=== PATIENT | male | born 1965 | race Caucasian/White ===

== ENCOUNTER 2022-05-29 11:15 | Outpatient (REF) | payer OTHER, SELFPAY ==
[2022-05-29 14:52] LABS: Basophils Absolute Auto 0.1 X10*3/uL (0.0-0.2); Basophils Percent Auto 0.5 % (0-2); Eosinophils Absolute Auto 0.3 X10*3/uL (0.0-0.4); Eosinophils Percent Auto 2.5 % (0-4); Hematocrit 44.9 % (42.0-52.0); Hemoglobin 15.9 g/dl (14.0-18.0); Imm Gran Abs Auto 0.05 X10*3/uL (0.00-0.03); Imm Gran Pct Auto 0.5 % (0.0-0.4); Lymphocytes Absolute Auto 2.1 X10*3/uL (1.2-4.9); Lymphocytes Percent Auto 19.7 % (20-40); MANUAL DIFF FLAG NO; Mean Corpuscular HGB Conc 35.4 g/dl (31.0-36.0); Mean Corpuscular Hemoglobin 32.9 pg (27.0-33.0); Mean Corpuscular Volume 92.8 fL (80.0-98.0); Monocytes Absolute Auto 0.6 X10*3/uL (0.1-1.2); Monocytes Percent Auto 5.9 % (2-11); Neutrophils Absolute Auto 7.5 x10*3/uL (2.0-8.3); Neutrophils Percent Auto 70.9 % (45-73); Platelet Count 301 X10*3/uL (160-400); Red Blood Count 4.84 X10*6/uL (4.60-5.80); Red Cell Distribution Width 11.9 % (11.0-16.0); White Blood Count 10.5 X10*3/uL (4.8-10.8)
[2022-05-29 15:27] LABS: Anion Gap 17 (12-20); Blood Urea Nitrogen 11 mg/dL (9-16); Calcium 9.3 mg/dL (8.4-10.2); Carbon Dioxide 28 mmol/L (22-29); Chloride 99 mmol/L (96-108); Estimated Glomerular Filt Rate > 60; Glucose Random 107 mg/dL (60-115); Potassium 4.6 mmol/L (3.3-5.1); Sodium 139 mmol/L (135-145)
== END 2022-05-29 11:16 | disposition home or self-care (01) ==
LOC: HO.WFDLDS 11:15
PROVIDERS: Visit Provider Nurse Practitioner Family
DX: K92.1 Melena (principal)
CPT/HCPCS: 36415; 80048; 85025

== ENCOUNTER 2025-01-21 17:27 | Inpatient (IN) | payer OTHER, SELFPAY ==
--- NOTE | ~2025-01-21 | XR_ITS ---
CLINICAL HISTORY: bone erosion 3 view right ankle Comparison: None Findings: No acute fractures or dislocations. Mild midfoot spurring. No ankle effusion. No radiopaque foreign body. IMPRESSION: 1. No acute findings. Mild DJD. No definite erosive changes. This document has been electronically signed by: Franck Guevara MD on 01/21/2025 21:48:26
[2025-01-21 17:31] VITALS: BP 144/61; PULSE 85; RESP 20; TEMP 37; O2SAT 98; BMI 22.8
--- NOTE | 2025-01-21 17:55 | ED_ITS ---
HPI - Wound/Laceration General Chief Complaint: Wound/Laceration Stated Complaint: bilat ft infection Time Seen by Provider: 01/21/25 18:11 Source: patient Mode of arrival: ambulatory Limitations: no limitations History of Present Illness ED Provider: HPI narrative: Patient no significant past medical history apparently twisted his right ankle about 2 weeks ago 4 days after that patient went to the river and soaked his feet in the cold water to get better next the patient noticed erythema and blistering of the skin went to the [facility] and started on doxycycline and cephalexin for cellulitis today patient comes here as it is not getting better and spread to the other food also and has a open wound of the right medial malleolus of the ankle and multiple areas of cellulitis? Insect bite patient is up-to-date on tetanus Related Data Home Medications ?Medication ?Instructions ?Recorded ?Confirmed lisinopril 5 mg tablet 5 mg PO DAILY 06/03/22 Previous Rx's ?Medication ?Instructions ?Recorded simethicone 125 mg chewable tablet 125 mg PO TID-QID PRN abdominal 06/03/22 (Gas Relief (simethicone)) distention #90 tabs Allergies Allergy/AdvReac Type Severity Reaction Status Date / Time penicillin V Allergy Unknown Patient Verified 01/21/25 17:37 can't remember was a child then Review of Systems 2 Review of Systems: Yes all other systems are reviewed and are negative [facility] Past Medical History Medical History (Updated 01/21/25 @ 22:24 by Stefano Juan MD) HTN (hypertension) Family History Family History Mother No problems noted. Social History Social History Household Members Other:: lives with Alcohol intake: current Alcohol intake frequency: holidays/special occasions only Patient Tobacco Use Status: Current everyday Tobacco user Tobacco use type: Cigarette Cigarette Packs Per Day: 1 Smoked in Last 30 Days: Yes Use of substances other than those prescribed or required for medical reasons: No Advance Directives: No Advance Directives Information Provided: Yes Nutrition Risks: No Nutritional Risk Current occupational status: employed Current occupation: [employer]- Physical Exam 2 Vital Signs: Vital Signs: Last Vital Signs Temp 98.4 F 01/21/25 22:33 Pulse 96 01/21/25 22:33 Resp 16 01/21/25 22:33 BP 160/95 H 01/21/25 22:33 Pulse Ox 98 01/21/25 22:33 O2 Del Method Room Air 01/21/25 22:33 BMI result Body Mass Index 22.8 Appearance: Alert. Oriented X3. No acute distress. Eyes: No pallor or icterus ENT: Pharynx normal. Oral Mucosa moist Neck: Normal inspection. Neck supple. CVS: Normal heart rate and rhythm. Pulses normal. Respiratory: No respiratory distress. Equal air entry bilateral, no wheezing/rales/rhonchi Abdomen: Soft and nontender. Bowel sounds are present, no mass palpable, no CVA tenderness Skin: Skin warm and dry. Skin color changes as described in the picture Extremities: No lower extremity edema. No calf tenderness Neuro: Oriented X 3. No motor deficit. No sensory deficit.No cerebellar signs , cranial nerves II-XII intact Skin: Other: Course Course Course Narrative: This is a rapid medical exam. Deferred additional HPI, ROS, PE to primary provider. 59 yo male with no known medical history presents to the ER with bilateral lower extremity wounds, swelling and redness. [place] the [place]11. developed symptoms following day. Went to [facility] and started on doxcycline/keflex but feels symptoms have continued and are getting worse. No fevers. Ordered labs, wound culture, antibiotics Consulted with Dr Juan. Anticipate admit Medications Administered Generic Name Dose Route Start Last Admin Trade Name Freq PRN Reason Stop Dose Admin Ceftriaxone Sodium 1 gm 01/21/25 23:00 01/21/25 22:42 Ceftriaxone Sodium 1 Gm Vial IVPUSH 1 gm Q24H LARRY Administration Enoxaparin Sodium 40 mg 01/21/25 23:00 01/21/25 22:42 Enoxaparin Sodium 40 Mg/0.4 Ml Syringe SUBCUT 40 mg Q24H LARRY Administration Sodium Chloride 3 ml 01/22/25 00:00 01/21/25 22:43 0.9 % Sodium Chloride Flush 3 Ml Syringe IVFLUSH 3 ml QSHIFT LARRY Administration Thiamine HCl 100 mg 01/21/25 22:25 01/21/25 22:41 Thiamine Hcl 100 Mg Tablet PO 100 mg DAILY LARRY Administration Discontinued Medications Generic Name Dose Route Start Last Admin Trade Name Ilene PRN Reason Stop Dose Admin Cefepime HCl 2 gm in 50 mls @ 100 mls/hr 01/21/25 17:44 01/21/25 18:44 Maxipime IV 01/21/25 18:13 Infused ONCE ONE Infusion Vancomycin HCl 1,000 mg/ 535 mls @ 267.5 mls/hr 01/21/25 19:00 01/21/25 21:18 Vancomycin HCl 750 mg/ Sodium IV 01/21/25 20:59 Infused Chloride ONCE ONE Infusion Sodium Chloride 1,000 mls @ 999 mls/hr 01/21/25 17:44 01/21/25 19:39 Ns IV 01/21/25 18:44 Infused .Q1H1M STA Infusion Ketorolac Tromethamine 30 mg 01/21/25 19:00 01/21/25 19:05 Ketorolac Tromethamine 30 Mg/Ml Vial IVPUSH 01/21/25 19:01 30 mg ONCE ONE Administration Morphine Sulfate 2 mg 01/21/25 17:44 01/21/25 18:19 Morphine Sulfate 2 Mg/Ml Cartridge IVPUSH 01/21/25 17:45 2 mg ONCE ONE Administration Protocol Medical Decision Making Medical Decision Making [facility] Narrative: Patient with infected wound bilateral lower feet started after patient is put his feet in the water likely from insect bite patient has had the sprain in the right ankle before but wounds with a blister on cellulitis came after patient's his feet in the water likely Pseudomonas infection/Gram-negative rods will start patient on cefepime and vancomycin Lab Data [facility] Lab Attestation statement: I reviewed the patient's lab results. 01/21/25 17:56 01/21/25 17:56 Labs: Lab Results 01/21/25 Range/Units 17:56 WBC 9.9 (4.8-10.8) X10*3/uL RBC 4.24 L (4.60-5.80) X10*6/uL Hgb 14.6 (14.0-18.0) g/dl Hct 41.2 L (42.0-52.0) % MCV 97.2 (80.0-98.0) fL MCH 34.4 H (27.0-33.0) pg MCHC 35.4 (31.0-36.0) g/dl RDW 11.9 (11.0-16.0) % Plt Count 324 (160-400) X10*3/uL MPV 8.6 L (9.4-12.4) fL Immature Gran % (Auto) 0.5 H (0.0-0.4) % Neut % (Auto) 72.7 (45-73) % Lymph % (Auto) 17.1 L (20-40) % [place] % (Auto) 6.5 (2-11) % Eos % (Auto) 2.7 (0-4) % Baso % (Auto) 0.5 (0-2) % Lymph # (Auto) 1.7 (1.2-4.9) X10*3/uL [place] # (Auto) 0.6 (0.1-1.2) X10*3/uL Eos # (Auto) 0.3 (0.0-0.4) X10*3/uL Baso # (Auto) 0.1 (0.0-0.2) X10*3/uL Abs Immat Gran (auto) 0.05 H (0.00-0.03) X10*3/uL Absolute Neuts (auto) 7.2 (2.0-8.3) x10*3/uL Absolute Nucleated RBC 0.000 (0.0-0.012) X10*3/uL Nucleated RBC % (auto) 0.0 (0.0-0.2) /100WBC ESR 32 H (0-15) MM/HR Sodium 141 (135-145) mmol/L Potassium 3.9 (3.3-5.1) mmol/L Chloride 104 (96-108) mmol/L Carbon Dioxide 25 (22-29) mmol/L Anion Gap 16 (12-20) BUN 9 (9-16) mg/dL Creatinine 0.61 (0.5-1.4) mg/dL Estim Creat Clear Calc 130.8 Estimated GFR > 60 Random Glucose 93 (60-115) mg/dL Lactic Acid 1.4 (0.5-2.0) mmol/L Calcium 9.5 (8.4-10.2) mg/dL Total Bilirubin 0.2 (0.0-1.0) mg/dL Direct Bilirubin < 0.2 (0.0-0.5) mg/dL AST 23 (5-37) U/L ALT 13 (0-40) U/L Alkaline Phosphatase 139 H (39-117) U/L C-Reactive Protein 4.66 H (< or = 0.50) mg/dL Total Protein 7.3 (6.5-8.0) g/dL Albumin 4.0 (3.5-5.0) g/dL Discharge Plan Discharge Clinical Impression: Wound of foot Patient Disposition: Admitted As Inpatient
[2025-01-21 17:59] VITALS: BP 179/109; PULSE 73; RESP 16; TEMP 37; O2SAT 100
[2025-01-21 18:06] LABS: MANUAL DIFF FLAG NO
[2025-01-21] MEDS: 0.9 % Sodium Chloride 1,000 ML 999 ML IV (18:17)
[2025-01-21] MEDS: cefEPime HCl/D5W 2 GM/50 ML PIGGYBACK IV (18:17)
[2025-01-21] MEDS: Morphine Sulfate 2 MG/ML CARTRIDGE IVPUSH (18:19)
[2025-01-21 18:21] LABS: Basophils Absolute Auto 0.1 X10*3/uL (0.0-0.2); Basophils Percent Auto 0.5 % (0-2); Eosinophils Absolute Auto 0.3 X10*3/uL (0.0-0.4); Eosinophils Percent Auto 2.7 % (0-4); Hematocrit 41.2 % (42.0-52.0); Hemoglobin 14.6 g/dl (14.0-18.0); Imm Gran Abs Auto 0.05 X10*3/uL (0.00-0.03); Imm Gran Pct Auto 0.5 % (0.0-0.4); Lymphocytes Absolute Auto 1.7 X10*3/uL (1.2-4.9); Lymphocytes Percent Auto 17.1 % (20-40); Mean Corpuscular HGB Conc 35.4 g/dl (31.0-36.0); Mean Corpuscular Hemoglobin 34.4 pg (27.0-33.0); Mean Corpuscular Volume 97.2 fL (80.0-98.0); Mean Platelet Volume 8.6 fL (9.4-12.4); Monocytes Absolute Auto 0.6 X10*3/uL (0.1-1.2); Monocytes Percent Auto 6.5 % (2-11); Neutrophils Absolute Auto 7.2 x10*3/uL (2.0-8.3); Neutrophils Percent Auto 72.7 % (45-73); Platelet Count 324 X10*3/uL (160-400); Red Blood Count 4.24 X10*6/uL (4.60-5.80); Red Cell Distribution Width 11.9 % (11.0-16.0); White Blood Count 9.9 X10*3/uL (4.8-10.8)
[2025-01-21 18:28] LABS: Lactic Acid 1.4 mmol/L (0.5-2.0)
[2025-01-21 18:29] LABS: Alanine Aminotransferase 13 U/L (0-40); Alkaline Phosphatase 139 U/L (39-117); Anion Gap 16 (12-20); Aspartate Amino Transferase 23 U/L (5-37); Bilirubin Direct < 0.2 mg/dL (0.0-0.5); Bilirubin Total 0.2 mg/dL (0.0-1.0); Blood Urea Nitrogen 9 mg/dL (9-16); C Reactive Protein 4.66 mg/dL (< or = 0.50); Calcium 9.5 mg/dL (8.4-10.2); Carbon Dioxide 25 mmol/L (22-29); Chloride 104 mmol/L (96-108); Creatinine Clr Calc Pharmacy 130.8; Estimated Glomerular Filt Rate > 60; Glucose Random 93 mg/dL (60-115); Potassium 3.9 mmol/L (3.3-5.1); Sodium 141 mmol/L (135-145); Total Protein 7.3 g/dL (6.5-8.0)
[2025-01-21] MEDS: vancomycin HCL 1,000 MG, vancomycin HCL 750 MG in 0.9 % Sodium Chloride 500 ML 267.5 MG IV (18:48)
[2025-01-21] MEDS: Ketorolac Tromethamine 30 MG/ML VIAL IVPUSH (19:05)
[2025-01-21 19:49] LABS: Erythrocyte Sedimentation Rate 32 MM/HR (0-15)
--- NOTE | 2025-01-21 22:08 | PM.IMHP ---
History of Present Illness Date of Service: 01/21/25 Attending physician on admission: Figueroa Santana Chief Complaint: foot wounds Patient is a 51-year-old male with a past medical history significant for hypertension, who presented to the ED due to wounds on bilateral feet. The patient reports that he rolled his ankle 2 weeks ago and 4 days later he was soaking his feet in the [place] river and noticed the following day he had erythematous burning skin lesions on bilateral feet. He was seen at [facility] and sent home with doxycycline and Keflex. The lesions have traveled to the other foot. There is an open wound on the right medial malleolus as well as the right lateral malleolus. The patient reports that these were large blisters that drained thin clear liquid with some bright red blood. He denies any fever, chills, nausea or vomiting no upper respiratory symptoms, urinary symptoms or abdominal complaints. Denies a history of MRSA. He does drink a few beers daily but reports that he has not had any since taking his antibiotics. Review of Systems Constitutional: Constitutional: Denies body ache(s), Denies chills, Denies fatigue, Denies fever(s) and Denies headache(s) Eyes: Eyes: Denies change in vision and Denies photophobia ENT: Denies headache(s), Denies nasal congestion, Denies nasal discharge and Denies sore throat Cardiovascular: Cardiovascular: Denies chest pain, Denies rapid heart rate, Denies lightheadedness and Denies dyspnea Respiratory: Respiratory: Denies chest congestion, Denies cough, Denies dyspnea and Denies wheezing Gastrointestinal: Gastrointestinal: Denies abdominal pain, Denies diarrhea, Denies nausea and Denies vomiting Genitourinary: Genitourinary: Denies dysuria, Denies urinary frequency and Denies urinary urgency Musculoskeletal: Musculoskeletal: Denies back pain Integumentary/Breasts: Skin/Breast: Reports as per HPI Neurologic: Denies confusion and Denies headache(s) Psychiatric: Psychiatric: Denies confusion Endocrine: Endocrine: Denies fatigue Hematologic/Lymphatic: Hematologic/Lymphatic: Denies easy bleeding and Denies easy bruising Allergic/Immunologic: Allergic/Immunologic: Denies wheezing [facility] Medical History (Updated 01/21/25 @ 22:24 by Stefano Juan MD) HTN (hypertension) Functional capacity: independent ambulation Family History Mother No problems noted. Social History Household Members Other:: lives with Alcohol intake: current Alcohol intake frequency: holidays/special occasions only Patient Tobacco Use Status: Current everyday Tobacco user Tobacco use type: Cigarette Cigarette Packs Per Day: 1 Smoked in Last 30 Days: Yes Use of substances other than those prescribed or required for medical reasons: No Advance Directives: No Advance Directives Information Provided: Yes Current occupational status: employed Current occupation: [employer]- Narrative: Smokes 1 pack per day, drinks a few beers per day, no drug use Meds Allergies Allergy/AdvReac Type Severity Reaction Status Date / Time penicillin V Allergy Unknown Patient Verified 01/21/25 17:37 can't remember was a child then Active Medications: Current Medications Ceftriaxone Sodium (Ceftriaxone Sodium 1 Gm Vial) 1 gm IVPUSH Q24H [facility] Pharmacy Consult (Consult Rx Vancomycin Dosing) 1 each MISCELLANE DAILY PRN PRN Reason: Consult order Home Medications ?Medication ?Instructions ?Recorded ?Confirmed ?Last Taken ?Type lisinopril 5 mg tablet 5 mg PO DAILY 06/03/22 Unknown History Physical Exam Vital Signs and Narrative: Vital Signs: Last Vital Signs Temp 98.6 F 01/21/25 17:59 Pulse 73 01/21/25 17:59 Resp 16 01/21/25 17:59 BP 179/109 H 01/21/25 17:59 Pulse Ox 100 01/21/25 17:59 O2 Del Method Room Air 01/21/25 17:59 BMI result Body Mass Index 22.8 General: AOx3, no acute distress Resp: CTA bilaterally CVS: S1, S2, RRR GI: +BS, NT, no distention Skin: Warm, dry. erthematous skin lesions on bilateral feet. edematous bilateral ankles, non-pitting. no increased warmth or active drainage from lesions. Neuro: Cranial nerves II-XII grossly intact bilaterally. Motor grossly intact bilaterally Extremities: No edema Psych: Appropriate affect Const: General: No confusion Orientation/consciousness: No confusion Eyes: Direct Ophthalmoscopy: No photophobia Neuro: General: No confusion Results Labs 01/21/25 17:56 01/21/25 17:56 Labs: Laboratory Results - last 24 hr 01/21/25 17:56 MCV 97.2 MCH 34.4 H MCHC 35.4 RDW 11.9 Plt Count 324 MPV 8.6 L Immature Gran % (Auto) 0.5 H Neut % (Auto) 72.7 Lymph % (Auto) 17.1 L [place] % (Auto) 6.5 Eos % (Auto) 2.7 Baso % (Auto) 0.5 Lymph # (Auto) 1.7 [place] # (Auto) 0.6 Eos # (Auto) 0.3 Baso # (Auto) 0.1 Abs Immat Gran (auto) 0.05 H Absolute Neuts (auto) 7.2 Absolute Nucleated RBC 0.000 Nucleated RBC % (auto) 0.0 ESR 32 H Anion Gap 16 Estim Creat Clear Calc 130.8 Estimated GFR > 60 Random Glucose 93 Lactic Acid 1.4 Calcium 9.5 Total Bilirubin 0.2 Direct Bilirubin < 0.2 AST 23 ALT 13 Alkaline Phosphatase 139 H C-Reactive Protein 4.66 H Total Protein 7.3 Albumin 4.0 Assessment and Plan (1) Cellulitis: Status: Acute (2) Wound of foot: Status: Acute (3) Tobacco abuse disorder: Status: Acute (4) Alcohol use disorder: Status: Acute Plan Patient is a 51-year-old male with a past medical history significant for hypertension, who presented to the ED due to wounds on bilateral feet. Cellulitis bilateral feet, right foot wound - WBC normal, vitals stable, lactic acid normal, no sepsis - ESR 32, CRP 4.66 - x-ray right foot negative for acute findings - started on vancomycin and cefepime in ED, switch to doxycycline and ceftriaxone - ID consult - monitor CBC and BMP Alcohol use disorder - monitor CIWA - if CIWA scores elevated initiate phenobarb protocol Tobacco use disorder - smoking cessation encouraged - nicotine patch Hypertension - continue home meds Med reconciliation not complete upon admission Full code VTE prophylaxis: Lovenox Patient with cellulitis bilateral feet with right foot foot wound and failed outpatient treatment, requiring admission for at least 2 midnight stay for IV antibiotics and Infectious Disease consultation. Quality Stroke Does the patient have a stroke diagnosis?: No VTE Prior VTE?: No VTE Risk Level:: Medical - moderate - high VTE Device Contraindication: Treatment Not Indicated VTE Drug Contraindication: N/A - Med Ordered
[2025-01-21 22:33] VITALS: BP 160/95; PULSE 96; RESP 16; TEMP 36.9; O2SAT 98
[2025-01-21] MEDS: Thiamine HCL 100 MG TABLET PO (22:41)
[2025-01-21] MEDS: Enoxaparin Sodium 40 MG/0.4 ML SYRINGE SUBCUT (22:42)
[2025-01-21] MEDS: cefTRIAXone sodium 1 GM VIAL IVPUSH (22:42)
[2025-01-21] MEDS: 0.9 % Sodium Chloride Flush 3 ML SYRINGE IVFLUSH (22:43)
[2025-01-22] MEDS: Morphine Sulfate 4 MG/ML CARTRIDGE 2 MG IVPUSH ×2 (02:10→06:44)
[2025-01-22 04:56] LABS: MANUAL DIFF FLAG NO
[2025-01-22 04:59] LABS: Basophils Percent Auto 0.5 % (0-2); Eosinophils Absolute Auto 0.3 X10*3/uL (0.0-0.4); Eosinophils Percent Auto 3.4 % (0-4); Hematocrit 36.1 % (42.0-52.0); Hemoglobin 12.4 g/dl (14.0-18.0); Imm Gran Abs Auto 0.05 X10*3/uL (0.00-0.03); Imm Gran Pct Auto 0.6 % (0.0-0.4); Lymphocytes Absolute Auto 1.6 X10*3/uL (1.2-4.9); Lymphocytes Percent Auto 21.2 % (20-40); Mean Corpuscular HGB Conc 34.3 g/dl (31.0-36.0); Mean Corpuscular Hemoglobin 34.1 pg (27.0-33.0); Mean Corpuscular Volume 99.2 fL (80.0-98.0); Mean Platelet Volume 8.8 fL (9.4-12.4); Monocytes Absolute Auto 0.8 X10*3/uL (0.1-1.2); Monocytes Percent Auto 10.3 % (2-11); Neutrophils Absolute Auto 4.9 x10*3/uL (2.0-8.3); Platelet Count 277 X10*3/uL (160-400); Red Blood Count 3.64 X10*6/uL (4.60-5.80); Red Cell Distribution Width 11.7 % (11.0-16.0); White Blood Count 7.7 X10*3/uL (4.8-10.8)
[2025-01-22 05:13] LABS: Anion Gap 13 (12-20); Blood Urea Nitrogen 11 mg/dL (9-16); C Reactive Protein 3.78 mg/dL (< or = 0.50); Calcium 8.6 mg/dL (8.4-10.2); Carbon Dioxide 24 mmol/L (22-29); Chloride 107 mmol/L (96-108); Estimated Glomerular Filt Rate > 60; Glucose Random 96 mg/dL (60-115); Potassium 3.9 mmol/L (3.3-5.1); Sodium 140 mmol/L (135-145)
[2025-01-22 05:42] LABS: Erythrocyte Sedimentation Rate 20 MM/HR (0-15)
[2025-01-22 06:15] VITALS: BP 148/101; PULSE 79; RESP 18; TEMP 36; O2SAT 97
[2025-01-22] MEDS: vancomycin HCL 1,250 MG in 0.9 % Sodium Chloride 250 ML 166.67 MG IV (06:41)
--- NOTE | 2025-01-22 07:49 | PC.NURSE ---
Patient is a 51-year-old male with a past medical history significant for hypertension, who presented to the ED due to wounds on bilateral feet. The patient reports that he rolled his ankle 2 weeks ago and 4 days later he was [place] his feet [place] the [place] and noticed the following day he had erythematous burning skin lesions on bilateral feet. He was seen at [facility] and sent home with doxycycline and Keflex. The lesions have traveled to the other foot. There is an open wound on the right medial malleolus as well as the right lateral malleolus. Patient alert and oriented. conveyor monitor maintained and NSR noted. Lungs clear bilat. Respirations even and non-labored. Abdomen soft, distended with positive bowel sounds. Positive pedal pulses with trace edema. Bilat redness noted with several wounds. Refer to pictures.
[2025-01-22 08:54] VITALS: BP 155/87; PULSE 82; RESP 16; TEMP 36.8; O2SAT 99
[2025-01-22 09:00] VITALS: BMI 22.9
[2025-01-22] MEDS: Doxycycline Hyclate 100 MG in 0.9 % Sodium Chloride 250 ML 166.67 MG IV ×2 (09:04→21:41)
[2025-01-22] MEDS: Thiamine HCL 100 MG TABLET PO (09:12)
[2025-01-22] MEDS: Nicotine 21 MG PATCH.TD24 TRANSDERMA (09:12)
--- NOTE | 2025-01-22 11:57 | PHA.MEDREC ---
Addendum entered by Charmaine Reddy RPh 01/22/25 12:30: MED REC REVIEWED BY [facility] Original Note: Pharmacy Consult ? Medication Reconciliation Pharmacy has completed the medication reconciliation. Spoke with pt and he confirmed he is not taking any medications at this time. Pt was taking a Doxycycline and Cephalexin regimen that he stated he finished Friday 01/19.
[2025-01-22 12:04] VITALS: BP 169/86; PULSE 83; RESP 18; TEMP 36.9; O2SAT 100
--- NOTE | 2025-01-22 14:15 | MHC.CM.PN ---
CM met with Patient at bedside. Patient lives in a house with his /HCP/Julieta, who will transport to home at time of dc. Julieta worked as a Nurse and per Patient, can do his wound care at home. Patient has not seen a PCP in a few years and would not qualify for VNA. Patient works at [employer] in [place], and he has [employer] for insurance.
[2025-01-22] MEDS: 0.9 % Sodium Chloride Flush 3 ML SYRINGE IVFLUSH ×2 (15:39→23:16)
[2025-01-22 16:00] VITALS: BP 128/81; PULSE 87; RESP 18; TEMP 36.6; O2SAT 97
--- NOTE | 2025-01-22 17:21 | P.PNIM_ITS ---
Subjective Subjective Date of Service: 01/22/25 Interval History: foot cellulitis Review of Systems Feet area looks the same Pain improving Review of Systems: Yes all other systems are reviewed and are negative Physical Exam 2 Vital Signs: Vital Signs: Last Vital Signs Temp 97.8 F 01/22/25 16:00 Pulse 87 01/22/25 16:00 Resp 18 01/22/25 16:00 BP 128/81 01/22/25 16:00 Pulse Ox 97 01/22/25 16:00 O2 Del Method Room Air 01/22/25 16:00 BMI result Body Mass Index 22.9 Appearance: Alert.? Oriented X3.? . cvs: rrr, [id number] . res: clear to auscultation ,no rhonchii or wheezing abd: no rebound or guarding ,nt, bs present. ext pulses present , no cyanosis . skin: Foot area looks the same please see H and P note. neuro: axo3 , nonfocal. Objective Data Active Medications Acetaminophen (Acetaminophen 325 Mg Tablet) 975 mg PO Q6H PRN PRN Reason: Pain, Mild 1-3,fever,headache Calcium Carbonate (Calcium Carbonate 750 Mg Tab.Chew) 750 mg PO Q4H PRN PRN Reason: Heartburn Ceftriaxone Sodium (Ceftriaxone Sodium 1 Gm Vial) 1 gm IVPUSH Q24H [facility] Last Admin: 01/21/25 22:42 Dose: 1 gm Documented By: JENNIFER Enoxaparin Sodium (Enoxaparin Sodium 40 Mg/0.4 Ml Syringe) 40 mg SUBCUT Q24H [facility] Last Admin: 01/21/25 22:42 Dose: 40 mg Documented By: JENNIFER Doxycycline Hyclate 100 mg/ (Sodium Chloride) 250 mls @ 166.67 mls/hr IV BID [facility] Last Infusion: 01/22/25 10:42 Dose: Infused Documented By: FOGARTB Magnesium Hydroxide (Milk Of Magnesia 30 Ml Oral.Susp) 30 ml PO DAILY PRN PRN Reason: Constipation Melatonin (Melatonin 3 Mg Tablet) 6 mg PO BEDTIME PRN PRN Reason: Insomnia Morphine Sulfate (Morphine Sulfate 4 Mg/Ml Cartridge) 2 mg IVPUSH Q4H PRN; Protocol PRN Reason: Pain, Severe (Pain Scale 7-10) Last Admin: 01/22/25 06:44 Dose: 2 mg Documented By: ALLEN Nicotine (Nicotine 21 Mg Patch.Td24) 21 mg TRANSDERMA DAILY [facility] Last Admin: 01/22/25 09:12 Dose: 21 mg Documented By: SUJATHA Ondansetron HCl (Ondansetron Hcl 4 Mg/2 Ml Vial) 4 mg IVPUSH Q8H PRN PRN Reason: Nausea and Vomiting Oxycodone HCl (Oxycodone Hcl Immed Release 5 Mg Tablet) 5 mg PO Q6H PRN PRN Reason: Pain, Moderate(Pain Scale 4-6) Sodium Chloride (0.9 % Sodium Chloride Flush 3 Ml Syringe) 3 ml IVFLUSH QSHIFT [facility] Last Admin: 01/22/25 15:39 Dose: 3 ml Documented By: KAUSHALARTJarad Thiamine HCl (Thiamine Hcl 100 Mg Tablet) 100 mg PO DAILY [facility] Last Admin: 01/22/25 09:12 Dose: 100 mg Documented By: SUJATHA Labs 01/22/25 04:21 01/22/25 04:21 Labs: Laboratory Results - last 24 hr 01/21/25 01/22/25 17:56 04:21 MCV 97.2 99.2 H MCH 34.4 H 34.1 H MCHC 35.4 34.3 RDW 11.9 11.7 Plt Count 324 277 MPV 8.6 L 8.8 L Immature Gran % (Auto) 0.5 H 0.6 H Neut % (Auto) 72.7 64.0 Lymph % (Auto) 17.1 L 21.2 [place] % (Auto) 6.5 10.3 Eos % (Auto) 2.7 3.4 Baso % (Auto) 0.5 0.5 Lymph # (Auto) 1.7 1.6 [place] # (Auto) 0.6 0.8 Eos # (Auto) 0.3 0.3 Baso # (Auto) 0.1 0.0 Abs Immat Gran (auto) 0.05 H 0.05 H Absolute Neuts (auto) 7.2 4.9 Absolute Nucleated RBC 0.000 0.000 Nucleated RBC % (auto) 0.0 0.0 ESR 32 H 20 H Anion Gap 16 13 Estim Creat Clear Calc 130.8 133.0 Estimated GFR > 60 > 60 Random Glucose 93 96 Lactic Acid 1.4 Calcium 9.5 8.6 D Total Bilirubin 0.2 Direct Bilirubin < 0.2 AST 23 ALT 13 Alkaline Phosphatase 139 H C-Reactive Protein 4.66 H 3.78 H Total Protein 7.3 Albumin 4.0 Microbiology Microbiology Results: Microbiology 01/21/25 17:56 Gram Stain - Final Ankle Right Routine Culture - Preliminary Culture in progress. Assessment and Plan (1) Cellulitis: Status: Acute Plan 51-year-old male with a past medical history significant for hypertension, who presented to the ED due to wounds on bilateral feet. Cellulitis bilateral feet, right foot wound WBC normal, vitals stable, lactic acid normal, no sepsis ESR 32, CRP 4.66 x-ray right foot negative for acute findings started on vancomycin and cefepime in ED, switch to doxycycline and ceftriaxone ID consult monitor CBC and BMP Alcohol use disorder- monitor CIWA if CIWA scores elevated initiate phenobarb protocol Tobacco use disorder smoking cessation encouraged nicotine patch Hypertension- continue home meds Med reconciliation not complete upon admission Full code VTE prophylaxis: Lovenox Patient with cellulitis bilateral feet with right foot foot wound and failed outpatient treatment, requiring admission for at least 2 midnight stay for IV antibiotics and Infectious Disease Quality Stroke Does the patient have a stroke diagnosis?: No VTE Prior VTE?: No VTE Risk Level:: Medical - moderate - high VTE Device Contraindication: Treatment Not Indicated VTE Drug Contraindication: N/A - Med Ordered
[2025-01-22 19:42] VITALS: BP 159/96; PULSE 92; RESP 16; TEMP 36.7; O2SAT 97
[2025-01-22] MEDS: oxyCODONE HCl Immed Release 5 MG TABLET PO (21:43)
[2025-01-22 23:15] VITALS: BP 148/84; PULSE 84; RESP 16; TEMP 36.8; O2SAT 98
[2025-01-22] MEDS: cefTRIAXone sodium 1 GM VIAL IVPUSH (23:15)
[2025-01-22] MEDS: Enoxaparin Sodium 40 MG/0.4 ML SYRINGE SUBCUT (23:15)
[2025-01-23 03:55] VITALS: BP 140/87; PULSE 81; RESP 17; TEMP 36.2; O2SAT 97
[2025-01-23 07:11] LABS: MANUAL DIFF FLAG NO
[2025-01-23 07:12] VITALS: BP 154/90; PULSE 73; RESP 20; TEMP 36.2; O2SAT 97
[2025-01-23 07:17] LABS: Basophils Absolute Auto 0.1 X10*3/uL (0.0-0.2); Basophils Percent Auto 0.7 % (0-2); Eosinophils Absolute Auto 0.3 X10*3/uL (0.0-0.4); Eosinophils Percent Auto 4.4 % (0-4); Hematocrit 36.8 % (42.0-52.0); Hemoglobin 12.7 g/dl (14.0-18.0); Imm Gran Abs Auto 0.05 X10*3/uL (0.00-0.03); Imm Gran Pct Auto 0.7 % (0.0-0.4); Lymphocytes Absolute Auto 1.7 X10*3/uL (1.2-4.9); Lymphocytes Percent Auto 23.4 % (20-40); Mean Corpuscular HGB Conc 34.5 g/dl (31.0-36.0); Mean Corpuscular Volume 98.4 fL (80.0-98.0); Mean Platelet Volume 8.6 fL (9.4-12.4); Monocytes Absolute Auto 0.6 X10*3/uL (0.1-1.2); Monocytes Percent Auto 8.3 % (2-11); Neutrophils Absolute Auto 4.6 x10*3/uL (2.0-8.3); Neutrophils Percent Auto 62.5 % (45-73); Platelet Count 280 X10*3/uL (160-400); Red Blood Count 3.74 X10*6/uL (4.60-5.80); Red Cell Distribution Width 11.4 % (11.0-16.0); White Blood Count 7.4 X10*3/uL (4.8-10.8)
[2025-01-23 07:18] LABS: Hematocrit 36.2 % (42.0-52.0); Hemoglobin 12.6 g/dl (14.0-18.0); Mean Corpuscular HGB Conc 34.8 g/dl (31.0-36.0); Mean Corpuscular Hemoglobin 33.8 pg (27.0-33.0); Mean Corpuscular Volume 97.1 fL (80.0-98.0); Mean Platelet Volume 8.4 fL (9.4-12.4); Platelet Count 272 X10*3/uL (160-400); Red Blood Count 3.73 X10*6/uL (4.60-5.80); Red Cell Distribution Width 11.7 % (11.0-16.0); White Blood Count 7.6 X10*3/uL (4.8-10.8)
[2025-01-23 07:33] LABS: Anion Gap 12 (12-20); Blood Urea Nitrogen 9 mg/dL (9-16); Calcium 8.8 mg/dL (8.4-10.2); Carbon Dioxide 25 mmol/L (22-29); Chloride 105 mmol/L (96-108); Creatinine Clr Calc Pharmacy 131.2; Estimated Glomerular Filt Rate > 60; Glucose Random 98 mg/dL (60-115); Potassium 4.1 mmol/L (3.3-5.1); Sodium 138 mmol/L (135-145)
[2025-01-23 07:35] LABS: Anion Gap 12 (12-20); Blood Urea Nitrogen 9 mg/dL (9-16); Calcium 8.8 mg/dL (8.4-10.2); Carbon Dioxide 25 mmol/L (22-29); Chloride 105 mmol/L (96-108); Creatinine Clr Calc Pharmacy 133.4; Estimated Glomerular Filt Rate > 60; Glucose Random 97 mg/dL (60-115); Sodium 138 mmol/L (135-145)
[2025-01-23] MEDS: oxyCODONE HCl Immed Release 5 MG TABLET PO ×2 (08:19→14:38)
[2025-01-23] MEDS: Thiamine HCL 100 MG TABLET PO (08:19)
[2025-01-23] MEDS: Nicotine 21 MG PATCH.TD24 TRANSDERMA (08:20)
[2025-01-23] MEDS: 0.9 % Sodium Chloride Flush 3 ML SYRINGE IVFLUSH (08:22)
[2025-01-23] MEDS: Doxycycline Hyclate 100 MG in 0.9 % Sodium Chloride 250 ML 166.67 MG IV (08:22)
--- NOTE | 2025-01-23 12:25 | PM.DS ---
DS: Providers Provider Date of Service: 01/23/25 Date of admission: 01/21/25 20:53 Date of discharge: 01/23/25 Primary care physician: None Physician Consults: 01/21/25 22:04 Consult to Infectious Diseases Routine Consulting Provider: [facility] Reason for consultation: foot wounds, cellulitis Has provider been notified: No 01/22/25 10:29 Consult to Wound Care Routine Reason for consultation: bilateral feet wounds DS: Diagnosis Discharge Diagnosis (1) Cellulitis: Status: Acute DS: Summary Hospital Course Hospital Course: Chief Complaint: foot wounds Patient is a 51-year-old male with a past medical history significant for hypertension, who presented to the ED due to wounds on bilateral feet. The patient reports that he rolled his ankle 2 weeks ago and 4 days later he was [place] and noticed the following day he had erythematous burning skin lesions on bilateral feet. He was seen at [facility] and sent home with doxycycline and Keflex. The lesions have traveled to the other foot. There is an open wound on the right medial malleolus as well as the right lateral malleolus. The patient reports that these were large blisters that drained thin clear liquid with some bright red blood. He denies any fever, chills, nausea or vomiting no upper respiratory symptoms, urinary symptoms or abdominal complaints. Denies a history of MRSA. He does drink a few beers daily but reports that he has not had any since taking his antibiotics. Hospital course: The patient presented with blisters on both feet (see provided pictures) after stepping into the [facility], admitted for presumed cellulitis of the feet. Superficial wound culture grew Staphylococcus aureus. The patient has significantly improved with treatment but still has some residual blisters. Management: Initially treated with intravenous doxycycline and ceftriaxone, resulting in significant clinical improvement. Superficial wound culture positive for Staphylococcus aureus, supporting the diagnosis of cellulitis and guiding antibiotic choice. Plan to transition to oral doxycycline and Ceftin (Cefuroxime) for discharge to complete the antibiotic course. Time Attestation Discharge Coordination Time (in mins): 45 Quality: Safe Use of Opioids Does Pt have an Active Cancer Diagnosis on the Problem List?: No Quality: Stroke Does the patient have a stroke diagnosis?: No Physical Exam Vital Signs: Vital Signs: Last Vital Signs Temp 97.1 F 01/23/25 07:12 Pulse 73 01/23/25 07:12 Resp 20 01/23/25 07:12 BP 154/90 H 01/23/25 07:12 Pulse Ox 97 01/23/25 07:12 O2 Del Method Room Air 01/23/25 07:12 BMI result Body Mass Index 22.9 Skin: Other: DS: Data Data Completed and Pending Labs on day of discharge: Laboratory Results - last 24 hr 01/23/25 01/23/25 01/23/25 07:00 07:00 07:00 WBC 7.4 7.6 RBC 3.74 L 3.73 L Hgb 12.7 L Hct MCV MCH MCHC RDW Plt Count MPV Immature Gran % (Auto) Neut % (Auto) Lymph % (Auto) [place] % (Auto) Eos % (Auto) Baso % (Auto) Lymph # (Auto) [place] # (Auto) Eos # (Auto) Baso # (Auto) Abs Immat Gran (auto) Absolute Neuts (auto) Absolute Nucleated RBC Nucleated RBC % (auto) Sodium Potassium Chloride Carbon Dioxide Anion Gap BUN Creatinine Estim Creat Clear Calc Estimated GFR Random Glucose Calcium 01/23/25 01/23/25 01/23/25 07:00 07:00 07:00 WBC RBC Hgb 12.6 L Hct 36.8 L 36.2 L MCV 98.4 H 97.1 MCH 34.0 H MCHC RDW Plt Count MPV Immature Gran % (Auto) Neut % (Auto) Lymph % (Auto) [place] % (Auto) Eos % (Auto) Baso % (Auto) Lymph # (Auto) [place] # (Auto) Eos # (Auto) Baso # (Auto) Abs Immat Gran (auto) Absolute Neuts (auto) Absolute Nucleated RBC Nucleated RBC % (auto) Sodium Potassium Chloride Carbon Dioxide Anion Gap BUN Creatinine Estim Creat Clear Calc Estimated GFR Random Glucose Calcium 01/23/25 01/23/25 01/23/25 07:00 07:00 07:00 WBC RBC Hgb Hct MCV MCH 33.8 H MCHC 34.5 34.8 RDW 11.4 11.7 Plt Count 280 MPV Immature Gran % (Auto) Neut % (Auto) Lymph % (Auto) [place] % (Auto) Eos % (Auto) Baso % (Auto) Lymph # (Auto) [place] # (Auto) Eos # (Auto) Baso # (Auto) Abs Immat Gran (auto) Absolute Neuts (auto) Absolute Nucleated RBC Nucleated RBC % (auto) Sodium Potassium Chloride Carbon Dioxide Anion Gap BUN Creatinine Estim Creat Clear Calc Estimated GFR Random Glucose Calcium 01/23/25 01/23/25 01/23/25 07:00 07:00 07:00 WBC RBC Hgb Hct MCV MCH MCHC RDW Plt Count 272 MPV 8.6 L 8.4 L Immature Gran % (Auto) 0.7 H Neut % (Auto) 62.5 Lymph % (Auto) 23.4 [place] % (Auto) 8.3 Eos % (Auto) 4.4 H Baso % (Auto) 0.7 Lymph # (Auto) 1.7 [place] # (Auto) 0.6 Eos # (Auto) 0.3 Baso # (Auto) 0.1 Abs Immat Gran (auto) 0.05 H Absolute Neuts (auto) 4.6 Absolute Nucleated RBC 0.000 0.000 Nucleated RBC % (auto) 0.0 Sodium Potassium Chloride Carbon Dioxide Anion Gap BUN Creatinine Estim Creat Clear Calc Estimated GFR Random Glucose Calcium 01/23/25 01/23/25 01/23/25 07:00 07:00 07:00 WBC RBC Hgb Hct MCV MCH MCHC RDW Plt Count MPV Immature Gran % (Auto) Neut % (Auto) Lymph % (Auto) [place] % (Auto) Eos % (Auto) Baso % (Auto) Lymph # (Auto) [place] # (Auto) Eos # (Auto) Baso # (Auto) Abs Immat Gran (auto) Absolute Neuts (auto) Absolute Nucleated RBC Nucleated RBC % (auto) 0.0 Sodium 138 138 Potassium 4.0 4.1 Chloride 105 Carbon Dioxide Anion Gap BUN Creatinine Estim Creat Clear Calc Estimated GFR Random Glucose Calcium 01/23/25 01/23/25 01/23/25 07:00 07:00 07:00 WBC RBC Hgb Hct MCV MCH MCHC RDW Plt Count MPV Immature Gran % (Auto) Neut % (Auto) Lymph % (Auto) [place] % (Auto) Eos % (Auto) Baso % (Auto) Lymph # (Auto) [place] # (Auto) Eos # (Auto) Baso # (Auto) Abs Immat Gran (auto) Absolute Neuts (auto) Absolute Nucleated RBC Nucleated RBC % (auto) Sodium Potassium Chloride 105 Carbon Dioxide 25 25 Anion Gap 12 12 BUN 9 Creatinine Estim Creat Clear Calc Estimated GFR Random Glucose Calcium 01/23/25 01/23/25 01/23/25 07:00 07:00 07:00 WBC RBC Hgb Hct MCV MCH MCHC RDW Plt Count MPV Immature Gran % (Auto) Neut % (Auto) Lymph % (Auto) [place] % (Auto) Eos % (Auto) Baso % (Auto) Lymph # (Auto) [place] # (Auto) Eos # (Auto) Baso # (Auto) Abs Immat Gran (auto) Absolute Neuts (auto) Absolute Nucleated RBC Nucleated RBC % (auto) Sodium Potassium Chloride Carbon Dioxide Anion Gap BUN 9 Creatinine 0.60 0.61 Estim Creat Clear Calc 133.4 131.2 Estimated GFR > 60 Random Glucose Calcium 01/23/25 01/23/25 01/23/25 07:00 07:00 07:00 WBC RBC Hgb Hct MCV MCH MCHC RDW Plt Count MPV Immature Gran % (Auto) Neut % (Auto) Lymph % (Auto) [place] % (Auto) Eos % (Auto) Baso % (Auto) Lymph # (Auto) [place] # (Auto) Eos # (Auto) Baso # (Auto) Abs Immat Gran (auto) Absolute Neuts (auto) Absolute Nucleated RBC Nucleated RBC % (auto) Sodium Potassium Chloride Carbon Dioxide Anion Gap BUN Creatinine Estim Creat Clear Calc Estimated GFR > 60 Random Glucose 97 98 Calcium 8.8 8.8 Preliminary micro results at discharge 01/21/25 17:56 Routine Culture - Preliminary Ankle Right Staphylococcus species 01/21/25 17:56 Blood Culture - Preliminary Blood - Venous No growth after 24 hours. 01/21/25 17:56 Blood Culture - Preliminary Blood - Venous No growth after 24 hours. Discharge Plan Discharge Anticipated Discharge Date/Time: 01/23/25 12:42 Patient Disposition: Home, Self-Care Discharge Diagnosis: Cellulitis of the feet Referrals: Physician,None [Primary Care Provider] - 1 Week Discharge Medications: New doxycycline monohydrate 100 mg capsule 100 mg PO BID 12 Days Qty: 24 0RF cefuroxime axetil 500 mg tablet 500 mg PO BID 14 Days Qty: 27 0RF No Action No Known Home Meds Discharge Orders: Discharge Order (Routine); Ordered 01/23/25 Ordered By: Teofilo Redh Diet: Advance to usual diet Activity on Discharge: As tolerated Stand Alone Forms: Patient Portal Discharge page Print Language: Indonesian Care Plan Goals: recovery from cellulitis of the feet Health Concerns: Cellulitis of the feet, alcohol use disorder Plan of Treatment: Take Doxycyline and Cefuroxime as recommended and follow up with your Doctor in a week Assessment: see above
--- NOTE | 2025-01-23 14:17 | P.CNID_ITS ---
History of Present Illness Data of Consult Service Date: 01/22/25 Requesting physician: Abdirashid Hinojosa Primary Care Provider: None Physician HPI Reason for consult: redness bilateral feet He reports wading in [place] week before and developed redness and blisters feet. He denied injury. He has no rash elsewhere. He in ER and given cephalosporin and Doxycycline and not improved. Review of Systems 2 Review of Systems: Yes all other systems are reviewed and are negative PMFSH Past Medical History Medical History HTN (hypertension) Family History Family History Mother No problems noted. Family history: reviewed and not pertinent Social History Social History Household Members: Spouse Household Members Other:: lives with Housing: House Do you presently have visiting nurse or other home services: No Alcohol intake: current Alcohol intake frequency: holidays/special occasions only Patient Tobacco Use Status: Current everyday Tobacco user Tobacco use type: Cigarette Cigarette Packs Per Day: 1 Cigarettes Per Day: 20.0 service: No Current occupational status: employed Current occupation: [employer]- Meds Allergies Allergy/AdvReac Type Severity Reaction Status Date / Time penicillin V Allergy Unknown Patient Verified 01/21/25 17:37 can't remember was a child then Active Medications: Current Medications Acetaminophen (Acetaminophen 325 Mg Tablet) 975 mg PO Q6H PRN PRN Reason: Pain, Mild 1-3,fever,headache Calcium Carbonate (Calcium Carbonate 750 Mg Tab.Chew) 750 mg PO Q4H PRN PRN Reason: Heartburn Ceftriaxone Sodium (Ceftriaxone Sodium 1 Gm Vial) 1 gm IVPUSH Q24H LARRY Last Admin: 01/22/25 23:15 Dose: 1 gm Enoxaparin Sodium (Enoxaparin Sodium 40 Mg/0.4 Ml Syringe) 40 mg SUBCUT Q24H LARRY Last Admin: 01/22/25 23:15 Dose: 40 mg Doxycycline Hyclate 100 mg/ (Sodium Chloride) 250 mls @ 166.67 mls/hr IV BID LARRY Last Infusion: 01/23/25 10:16 Dose: Infused Magnesium Hydroxide (Milk Of Magnesia 30 Ml Oral.Susp) 30 ml PO DAILY PRN PRN Reason: Constipation Melatonin (Melatonin 3 Mg Tablet) 6 mg PO BEDTIME PRN PRN Reason: Insomnia Morphine Sulfate (Morphine Sulfate 4 Mg/Ml Cartridge) 2 mg IVPUSH Q4H PRN; Protocol PRN Reason: Pain, Severe (Pain Scale 7-10) Last Admin: 01/22/25 06:44 Dose: 2 mg Nicotine (Nicotine 21 Mg Patch.Td24) 21 mg TRANSDERMA DAILY [facility] Last Admin: 01/23/25 08:20 Dose: 21 mg Ondansetron HCl (Ondansetron Hcl 4 Mg/2 Ml Vial) 4 mg IVPUSH Q8H PRN PRN Reason: Nausea and Vomiting Oxycodone HCl (Oxycodone Hcl Immed Release 5 Mg Tablet) 5 mg PO Q6H PRN PRN Reason: Pain, Moderate(Pain Scale 4-6) Last Admin: 01/23/25 08:19 Dose: 5 mg Sodium Chloride (0.9 % Sodium Chloride Flush 3 Ml Syringe) 3 ml IVFLUSH QSHIFT [facility] Last Admin: 01/23/25 08:22 Dose: 3 ml Thiamine HCl (Thiamine Hcl 100 Mg Tablet) 100 mg PO DAILY [facility] Last Admin: 01/23/25 08:19 Dose: 100 mg Home Medications ?Medication ?Instructions ?Recorded ?Confirmed ?Last Taken ?Type No Known Home Meds 01/22/25 01/22/25 Unknown History Physical Exam 2 Vital Signs: Vital Signs: Last Vital Signs Temp 97.1 F 01/23/25 07:12 Pulse 73 01/23/25 07:12 Resp 20 01/23/25 07:12 BP 154/90 H 01/23/25 07:12 Pulse Ox 97 01/23/25 07:12 O2 Del Method Room Air 01/23/25 07:12 BMI result Body Mass Index 22.9 Const: General: cooperative HEENT: Head: Yes normal to inspection Face and sinus: Yes normal facial exam Mouth: Normal oral and palatal mucosa present Teeth and gingiva: d entition normal Eyes: General: appearance normal, both eyes and all related structures P upils: Equal, round and reactive pupils present Resp: Effort & Inspection: normal respiratory effort Cardio: Rate: regular rate Rhythm: regular rhythm GI: Palpation (GI): Soft to palpation and nontender : General: Yes no CVA tenderness Back/Spine/Pelvis: Back: no CVA tenderness Skin: General skin exam: no rashes or lesions noted Neuro: General: moves all extremities Cranial nerves: Yes Equal, round and reactive pupils present Extrem: Other: bilateral feet blister and scaly red and blue areas Psych: Appearance: grossly normal Results Labs 01/23/25 07:00 01/23/25 07:00 Labs: Short CBC 01/23/25 01/23/25 01/23/25 Range/Units 07:00 07:00 07:00 WBC 7.4 7.6 (4.8-10.8) X10*3/uL Hgb 12.7 L 12.6 L (14.0-18.0) g/dl Hct 36.8 L (42.0-52.0) % Plt Count (160-400) X10*3/uL 01/23/25 01/23/25 Range/Units 07:00 07:00 WBC (4.8-10.8) X10*3/uL Hgb (14.0-18.0) g/dl Hct 36.2 L (42.0-52.0) % Plt Count 280 272 (160-400) X10*3/uL BMP 01/23/25 01/23/25 01/23/25 07:00 07:00 07:00 Sodium 138 138 Potassium 4.0 4.1 Chloride 105 Carbon Dioxide BUN Creatinine Calcium 01/23/25 01/23/25 01/23/25 07:00 07:00 07:00 Sodium Potassium Chloride 105 Carbon Dioxide 25 25 BUN 9 9 Creatinine 0.60 Calcium 01/23/25 01/23/25 07:00 07:00 Sodium Potassium Chloride Carbon Dioxide BUN Creatinine 0.61 Calcium 8.8 8.8 Microbiology Microbiology Results: Microbiology 01/21/25 17:56 Ankle Right Gram Stain - Final 01/21/25 17:56 Ankle Right Routine Culture - Preliminary Staphylococcus species 01/21/25 17:56 Blood - Venous Blood Culture - Preliminary No growth after 24 hours. 01/21/25 17:56 Blood - Venous Blood Culture - Preliminary No growth after 24 hours. Assessment and Plan (1) Wound of foot: Status: Acute (2) Cellulitis: Status: Acute Plan Would discharge now on po Doxycycline and Augmentin for 14 days.
[2025-01-23] MEDS: cefuroxime axetiL 500 MG TABLET PO (14:36)
[2025-01-23 14:50] VITALS: BP 139/93; PULSE 88; RESP 20; TEMP 36.3; O2SAT 97
--- NOTE | 2025-01-23 15:22 | MHC.CM.PN ---
Pt has been medically cleared for DC, he will go home via private transport, plan is self care.
== END 2025-01-23 15:23 | disposition home or self-care (01) | DRG 383 ==
LOC: HO.ED 18:58 → HO.EDOVER 21:07 → HO.IMC 01-22 08:26
PROVIDERS: Internal Medicine; Nurse Practitioner Family; Physician Assistant; Admitting Provider Student in an Organized Health Care Education/Training Program; Emergency Provider Internal Medicine; Visit Provider Internal Medicine
DX: L03.115 Cellulitis of right lower limb (principal); F10.90 Alcohol use, unspecified, uncomplicated; L03.116 Cellulitis of left lower limb; I10 Essential (primary) hypertension; F17.210 Nicotine dependence, cigarettes, uncomplicated; Z71.6 Tobacco abuse counseling
CPT/HCPCS: 36415; 73600; 80048; 80076; 83605; 85025; 85027; 85652; 86140; 87040; 87070; 87077; 87186; 87205; 99222; 99285; J0692; J0696; J1271; J1650; J1885; J2270; J3370; J3371

== ENCOUNTER → 2025-01-21 20:48 | Outpatient (BNV) | payer OTHER, SELFPAY | PROVIDERS: Admitting Provider Student in an Organized Health Care Education/Training Program; Emergency Provider Internal Medicine; Visit Provider Student in an Organized Health Care Education/Training Program | DX: M85.871 Other specified disorders of bone density and structure, right ankle and foot (principal) | CPT/HCPCS: 73600 ==

== ENCOUNTER → 2025-01-21 20:53 | Outpatient (BNV) | payer OTHER, SELFPAY | PROVIDERS: Admitting Provider Student in an Organized Health Care Education/Training Program; Emergency Provider Internal Medicine; Visit Provider Physician Assistant | DX: L03.90 Cellulitis, unspecified (principal); S91.309A Unspecified open wound, unspecified foot, initial encounter; Z72.0 Tobacco use; F10.90 Alcohol use, unspecified, uncomplicated | CPT/HCPCS: 99223 ==

== ENCOUNTER → 2025-01-21 20:53 | Outpatient (BNV) | payer OTHER, SELFPAY | PROVIDERS: Admitting Provider Student in an Organized Health Care Education/Training Program; Emergency Provider Internal Medicine; Visit Provider Internal Medicine | DX: S91.309A Unspecified open wound, unspecified foot, initial encounter (principal); L03.90 Cellulitis, unspecified | CPT/HCPCS: 99222 ==

== ENCOUNTER 2025-04-16 16:58 | Emergency (ER) | payer OTHER, SELFPAY ==
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
[2025-04-16 17:10] VITALS: BP 132/97; PULSE 79; RESP 18; TEMP 37.1; O2SAT 96; BMI 22.3
--- NOTE | 2025-04-16 17:12 | ED.GENADULT ---
HPI - General Adult General Chief complaint: Abdominal Pain Stated complaint: groin pain (?hernia) Related Data Home Medications ?Medication ?Instructions ?Recorded ?Confirmed No Known Home Meds 01/22/25 01/22/25 Previous Rx's ?Medication ?Instructions ?Recorded cefuroxime axetil 500 mg tablet 500 mg PO BID 14 days #27 tabs 01/23/25 doxycycline monohydrate 100 mg 100 mg PO BID 12 days #24 caps 01/23/25 capsule Allergies Allergy/AdvReac Type Severity Reaction Status Date / Time penicillin V Allergy Unknown Patient Verified 04/17/25 11:11 can't remember was a child then [facility] Past Medical History Medical History HTN (hypertension) Family History Family History Mother No problems noted. Social History Social History Household Members: Spouse Household Members Other:: lives with Housing: House Do you presently have visiting nurse or other home services: No Alcohol intake: current Alcohol intake frequency: holidays/special occasions only Patient Tobacco Use Status: Current everyday Tobacco user Tobacco use type: Cigarette Cigarette Packs Per Day: 1 Cigarettes Per Day: 20.0 Advance Directives: No Advance Directives Information Provided: No service: No Current occupational status: employed Current occupation: [employer]- Physical Exam ED Vital Signs: BMI result Body Mass Index 22.3 Course Course Course Narrative: Rapid medical examination performed in triage by Yessica Butler PA-C. Patient is a 59 year old assigned male at presenting to the emergency department with lower abdominal pain. Detailed physical exam and review of systems are deferred to the embedded firmware developer. Labs ordered. Patient placed back in the waiting room pending room availability and results. Patient left the department without completing treatment. Patient's limited physical exam performed in triage showed a non-toxic individual in no acute distress, ambulating well without assistance, alert and oriented. Medical Decision Making Lab Data 04/16/25 17:20 04/16/25 17:20 Labs: Lab Results 04/16/25 Range/Units 17:20 WBC 5.7 (4.8-10.8) X10*3/uL RBC 4.38 L (4.60-5.80) X10*6/uL Hgb 15.6 D (14.0-18.0) g/dl Hct 41.6 L (42.0-52.0) % MCV 95.0 (80.0-98.0) fL MCH 35.6 H (27.0-33.0) pg MCHC 37.5 H (31.0-36.0) g/dl RDW 13.7 (11.0-16.0) % Plt Count 200 D (160-400) X10*3/uL MPV 8.1 L (9.4-12.4) fL Immature Gran % (Auto) 0.3 (0.0-0.4) % Neut % (Auto) 53.3 (45-73) % Lymph % (Auto) 36.9 (20-40) % Pope % (Auto) 6.1 (2-11) % Eos % (Auto) 2.4 (0-4) % Baso % (Auto) 1.0 (0-2) % Lymph # (Auto) 2.1 (1.2-4.9) X10*3/uL Pope # (Auto) 0.4 (0.1-1.2) X10*3/uL Eos # (Auto) 0.1 (0.0-0.4) X10*3/uL Baso # (Auto) 0.1 (0.0-0.2) X10*3/uL Abs Immat Gran (auto) 0.02 (0.00-0.03) X10*3/uL Absolute Neuts (auto) 3.0 (2.0-8.3) x10*3/uL Absolute Nucleated RBC 0.000 (0.0-0.012) X10*3/uL Nucleated RBC % (auto) 0.0 (0.0-0.2) /100WBC Sodium 143 (135-145) mmol/L Potassium 4.1 (3.3-5.1) mmol/L Chloride 105 (96-108) mmol/L Carbon Dioxide 28 (22-29) mmol/L Anion Gap 14 (12-20) BUN 16 (9-16) mg/dL Creatinine 0.71 (0.5-1.4) mg/dL Estim Creat Clear Calc 113.2 Estimated GFR > 60 Random Glucose 99 (60-115) mg/dL Calcium 8.5 (8.4-10.2) mg/dL Total Bilirubin 0.2 (0.0-1.0) mg/dL AST 87 H (5-37) U/L ALT 59 H (0-40) U/L Alkaline Phosphatase 123 H (39-117) U/L Total Protein 7.2 (6.5-8.0) g/dL Albumin 4.2 (3.5-5.0) g/dL Discharge Plan Discharge Clinical Impression: Abdominal pain Patient Disposition: Left W/O Completing Treatment Prescriptions: No Action No Known Home Meds doxycycline monohydrate 100 mg capsule 100 mg PO BID 12 Days Qty: 24 0RF cefuroxime axetil 500 mg tablet 500 mg PO BID 14 Days Qty: 27 0RF Discharge Date/Time: 04/16/25 21:31
[2025-04-16 17:26] LABS: MANUAL DIFF FLAG NO
[2025-04-16 17:28] LABS: Hematocrit 41.6 % (42.0-52.0); Hemoglobin 15.6 g/dl (14.0-18.0); Imm Gran Abs Auto 0.02 X10*3/uL (0.00-0.03); Imm Gran Pct Auto 0.3 % (0.0-0.4); Lymphocytes Absolute Auto 2.1 X10*3/uL (1.2-4.9); Mean Corpuscular HGB Conc 37.5 g/dl (31.0-36.0); Mean Corpuscular Hemoglobin 35.6 pg (27.0-33.0); Mean Corpuscular Volume 95.0 fL (80.0-98.0); NRBC Abs Auto 0.000 X10*3/uL (0.0-0.012); NRBC Pct Auto 0.0 /100WBC (0.0-0.2); Platelet Count 200 X10*3/uL (160-400); Red Blood Count 4.38 X10*6/uL (4.60-5.80); White Blood Count 5.7 X10*3/uL (4.8-10.8)
[2025-04-16 17:43] LABS: Alanine Aminotransferase 59 U/L (0-40); Albumin Level 4.2 g/dL (3.5-5.0); Alkaline Phosphatase 123 U/L (39-117); Anion Gap 14 (12-20); Aspartate Amino Transferase 87 U/L (5-37); Blood Urea Nitrogen 16 mg/dL (9-16); Calcium 8.5 mg/dL (8.4-10.2); Carbon Dioxide 28 mmol/L (22-29); Chloride 105 mmol/L (96-108); Creatinine Clr Calc Pharmacy 113.2; Estimated Glomerular Filt Rate > 60; Potassium 4.1 mmol/L (3.3-5.1); Sodium 143 mmol/L (135-145); Total Protein 7.2 g/dL (6.5-8.0)
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
== END 2025-04-16 21:31 | disposition left against medical advice (07) ==
PROVIDERS: Physician Assistant Medical; Emergency Provider Emergency Medicine
DX: R10.9 Unspecified abdominal pain (principal); Z53.21 Procedure and treatment not carried out due to patient leaving prior to being seen by health care provider
CPT/HCPCS: 36415; 80053; 85025; 99281; 99283

== ENCOUNTER 2025-04-17 10:31 | Emergency (ER) | payer OTHER, SELFPAY ==
--- NOTE | ~2025-04-17 | XR_ITS ---
CLINICAL HISTORY: pain 1 view abdomen Comparison: None provided Findings: No pneumoperitoneum or pneumatosis. Normal stool quantity. No abnormal calcifications. No acute fractures. IMPRESSION: The bowel gas pattern is normal This document has been electronically signed by: Ramya Brown MD on 04/17/2025 20:21:36
[2025-04-17 11:10] VITALS: BP 142/97; PULSE 79; RESP 18; TEMP 36.4; O2SAT 98; BMI 22.3
--- NOTE | 2025-04-17 11:11 | ED_ITS ---
HPI - General Adult General Chief complaint: Abdominal Pain Stated complaint: Hernia? Lower abd pain Time Seen by Provider: 04/17/25 19:27 Source: patient Limitations: no limitations History of Present Illness ED Provider: Maria Del Carmen Moreno PA-C HPI narrative: 59-year-old male with a history of alcohol use disorder, gas bloat syndrome, hypertension who presents with vague abdominal discomfort for over a week. Pain over left lower abdomen is nonradiating, unable to describe the nature of his discomfort. Discomfort is worse with movement at times. Denies new activity or heavy lifting that could have precipitated his symptoms. Patient states he has a relatively physical job and is always performing physical activity. Denies nausea vomiting diarrhea or constipation. Denies dysuria, hematuria, history of kidney stones, back pain or fever. Denies abdominal distention or inability to pass flatus. Denies swelling within the inguinal region/groin, scrotal swelling or pain. Patient was seen at [facility] for similar complaint, had a negative CT scan at that time. Patient has yet to follow up with the primary care. No change in symptoms. Related Data Home Medications ?Medication ?Instructions ?Recorded ?Confirmed No Known Home Meds 01/22/25 01/22/25 Previous Rx's ?Medication ?Instructions ?Recorded cefuroxime axetil 500 mg tablet 500 mg PO BID 14 days #27 tabs 01/23/25 doxycycline monohydrate 100 mg 100 mg PO BID 12 days # 24 caps 01/23/25 capsule Allergies Allergy/AdvReac Type Severity Reaction Status Date / Time penicillin V Allergy Unknown Patient Verified 04/17/25 11:11 can't remember was a child then Review of Systems 2 Review of Systems: Yes all other systems are reviewed and are negative Constitutional: Constitutional: Denies fatigue and Denies fever(s) Cardiovascular: Cardiovascular: Denies chest pain and Denies dyspnea Respiratory: Respiratory: Denies cough and Denies dyspnea Gastrointestinal: Gastrointestinal: Reports abdominal pain, Denies bloating, Denies constipation, Denies dyspepsia, Denies diarrhea, Denies nausea and Denies vomiting Genitourinary: Genitourinary: Denies hematuria, Denies genital pain, Denies dysuria, Denies flank pain and Denies scrotal swelling Musculoskeletal: Musculoskeletal: Denies back pain Endocrine: Endocrine: Denies fatigue PMFSH Past Medical History Medical History HTN (hypertension) Family History Family History Mother No problems noted. Social History Social History Household Members: Spouse Household Members Other:: lives with Housing: House Do you presently have visiting nurse or other home services: No Alcohol intake: current Alcohol intake frequency: holidays/special occasions only Patient Tobacco Use Status: Current everyday Tobacco user Tobacco use type: Cigarette Cigarette Packs Per Day: 1 Cigarettes Per Day: 20.0 Advance Directives: No Advance Directives Information Provided: No service: No Current occupational status: employed Current occupation: [employer]- Physical Exam ED Vital Signs: Vital Signs - 24 hr 04/17/25 11:10 04/17/25 20:19 Temperature 97.5 F 97.9 F Pulse Rate 79 80 Respiratory Rate 18 16 Blood Pressure 142/97 H 182/114 H Pulse Oximetry 98 98 Oxygen Delivery Method Room Air Room Air BMI result Body Mass Index 22.3 Course Course Course Narrative: This is an RME: Additional HPI, ROS, PE not included below will be deferred to primary provider. RME assessment and note performed by: Emily Bonilla PA-C This is a [id number], with no known medical problems, who presents to the ER with concerns of LLQ for the last 2 days. No fevers, chills, nausea, vomiting, diarrhea, changes in urinary or bowel habits. Plan: Labs, UA, further ER evaluation needed. Medications Administered Discontinued Medications Generic Name Dose Route Start Last Admin Trade Name Freq PRN Reason Stop Dose Admin Acetaminophen 975 mg 04/17/25 18:27 04/17/25 18:47 Acetaminophen 325 Mg Tablet PO 04/17/25 18:28 975 mg ONCE ONE Administration Medical Decision Making Medical Decision Making MDM Narrative: 59-year-old male with a history of alcohol use disorder, gas bloat syndrome, hypertension who presents with vague abdominal discomfort for over a week. Pain over left lower abdomen is nonradiating, unable to describe the nature of his discomfort. Discomfort is worse with movement at times. Denies new activity or heavy lifting that could have precipitated his symptoms. Patient states he has a relatively physical job and is always performing physical activity. Denies nausea vomiting diarrhea or constipation. Denies dysuria, hematuria, history of kidney stones, back pain or fever. Denies abdominal distention or inability to pass flatus. Denies swelling within the inguinal region/groin, scrotal swelling or pain. Patient was seen at [facility] for similar complaint, had a negative CT scan at that time. Patient has yet to follow up with the primary care. No change in symptoms. Problem: Alcohol use disorder, known gas bloat syndrome hypertension History: Per patient I have considered the following differential diagnoses: Constipation, bowel obstruction, diverticulitis, renal colic, UTI, pyelonephritis, inguinal hernia Plan: Patient here with vague abdominal pain that has been going on for over a week, without any associated or GI symptoms. Screening labs obtained are unremarkable, obtaining a KUB. He has no obstructive symptoms to his suggest bowel obstruction and he has a benign exam. There was no flank pain or CVA tenderness to suggest renal colic versus pyelonephritis, and furthermore, again he has no active symptoms. Thought about inguinal hernia, however there was no evidence on my exam, he is also not experiencing testicular pain and swelling. I am not able to elicit any discomfort in the left lower abdomen with deep palpation, I was also able to review his CT scan from [facility], it was unremarkable, without any acute processes. He does not warrant repeat advanced imaging at this time. I have independently reviewed the following tests: Labs: No leukocytosis, not anemic, no electrolyte abnormality, LFTs are as expected with the his alcohol abuse history, urine not infected KUB:Findings: No pneumoperitoneum or pneumatosis. Normal stool quantity. No abnormal calcifications. No acute fractures. IMPRESSION: The bowel gas pattern is normal Differential Diagnosis Differential Diagnoses: The differential diagnosis associated with the presentation includes See medical decision-making Admission/Observation Consideration of admission/observation: Escalation of care including admission/observation considered Not applicable Lab Data MDM Lab Attestation statement: I reviewed the patient's lab results. 04/17/25 12:05 04/17/25 12:05 Labs: Lab Results 04/17/25 04/17/25 Range/Units 12:05 18:36 WBC 4.7 L (4.8-10.8) X10*3/uL RBC 4.44 L (4.60-5.80) X10*6/uL Hgb 15.4 (14.0-18.0) g/dl Hct 42.1 (42.0-52.0) % MCV 94.8 (80.0-98.0) fL MCH 34.7 H (27.0-33.0) pg MCHC 36.6 H (31.0-36.0) g/dl RDW 13.6 (11.0-16.0) % Plt Count 208 (160-400) X10*3/uL MPV 8.2 L (9.4-12.4) fL Immature Gran % (Auto) 0.2 (0.0-0.4) % Neut % (Auto) 46.7 (45-73) % Lymph % (Auto) 41.8 H (20-40) % [place] % (Auto) 7.2 (2-11) % Eos % (Auto) 3.0 (0-4) % Baso % (Auto) 1.1 (0-2) % Lymph # (Auto) 2.0 (1.2-4.9) X10*3/uL [place] # (Auto) 0.3 (0.1-1.2) X10*3/uL Eos # (Auto) 0.1 (0.0-0.4) X10*3/uL Baso # (Auto) 0.1 (0.0-0.2) X10*3/uL Abs Immat Gran (auto) 0.01 (0.00-0.03) X10*3/uL Absolute Neuts (auto) 2.2 (2.0-8.3) x10*3/uL Absolute Nucleated RBC 0.000 (0.0-0.012) X10*3/uL Nucleated RBC % (auto) 0.0 (0.0-0.2) /100WBC Sodium 137 (135-145) mmol/L Potassium 4.1 (3.3-5.1) mmol/L Chloride 101 (96-108) mmol/L Carbon Dioxide 24 (22-29) mmol/L Anion Gap 16 (12-20) BUN 14 (9-16) mg/dL Creatinine 0.65 (0.5-1.4) mg/dL Estim Creat Clear Calc 123.7 Estimated GFR > 60 Random Glucose 106 (60-115) mg/dL Calcium 8.3 L (8.4-10.2) mg/dL Magnesium 2.1 (1.6-2.6) mg/dL Total Bilirubin 0.3 (0.0-1.0) mg/dL Direct Bilirubin < 0.1 (0.0-0.5) mg/dL AST 91 H (5-37) U/L ALT 57 H (0-40) U/L Alkaline Phosphatase 124 H (39-117) U/L Total Protein 7.0 (6.5-8.0) g/dL Albumin 4.1 (3.5-5.0) g/dL Urine Color Yellow Urine Appearance Clear Urine pH 7.0 (5.0-9.0) Ur Specific [place] 1.025 (1.005-1.025) Urine Protein Trace (Neg-Trace) mg/dL Urine Glucose (UA) Negative (Negative) mg/dL Urine Ketones Trace (Negative) mg/dL Urine Blood Negative (Negative) Urine Nitrite Negative (Negative) Ur Leukocyte Esterase Negative (Negative) Radiology Impression Discussion of test interpretation with radiology: I have reviewed the radiologist's reading. Discharge Plan Discharge Clinical Impression: Excessive flatus Patient Disposition: Home, Self-Care Instructions: Gas and Bloating (ED), How to Avoid and Decrease Problems with Gas (DC) Additional Instructions: All of your screening labs were normal, the x-ray revealed that you are excessively gassy. See home care instructions. Use [id number] Gas-X to alleviate symptoms. I have provided you with additional remedies to help control symptoms. You need to establish primary care, at times, patients require further assessment as an outpatient, that the emergency department can not expedite for them. I would call your insurance company to begin this process. Prescriptions: No Action No Known Home Meds doxycycline monohydrate 100 mg capsule 100 mg PO BID 12 Days Qty: 24 0RF cefuroxime axetil 500 mg tablet 500 mg PO BID 14 Days Qty: 27 0RF Stand Alone Forms: Work/School Release Print Language: Uzbek
[2025-04-17 12:24] LABS: MANUAL DIFF FLAG NO
[2025-04-17 12:25] LABS: Hematocrit 42.1 % (42.0-52.0); Hemoglobin 15.4 g/dl (14.0-18.0); Imm Gran Abs Auto 0.01 X10*3/uL (0.00-0.03); Imm Gran Pct Auto 0.2 % (0.0-0.4); Lymphocytes Absolute Auto 2.0 X10*3/uL (1.2-4.9); Mean Corpuscular HGB Conc 36.6 g/dl (31.0-36.0); Mean Corpuscular Hemoglobin 34.7 pg (27.0-33.0); Mean Corpuscular Volume 94.8 fL (80.0-98.0); NRBC Abs Auto 0.000 X10*3/uL (0.0-0.012); NRBC Pct Auto 0.0 /100WBC (0.0-0.2); Platelet Count 208 X10*3/uL (160-400); Red Blood Count 4.44 X10*6/uL (4.60-5.80); White Blood Count 4.7 X10*3/uL (4.8-10.8)
[2025-04-17 12:47] LABS: Alanine Aminotransferase 57 U/L (0-40); Albumin Level 4.1 g/dL (3.5-5.0); Alkaline Phosphatase 124 U/L (39-117); Anion Gap 16 (12-20); Aspartate Amino Transferase 91 U/L (5-37); Blood Urea Nitrogen 14 mg/dL (9-16); Calcium 8.3 mg/dL (8.4-10.2); Carbon Dioxide 24 mmol/L (22-29); Chloride 101 mmol/L (96-108); Creatinine Clr Calc Pharmacy 123.7; Estimated Glomerular Filt Rate > 60; Magnesium 2.1 mg/dL (1.6-2.6); Potassium 4.1 mmol/L (3.3-5.1); Sodium 137 mmol/L (135-145); Total Protein 7.0 g/dL (6.5-8.0)
[2025-04-17 18:51] LABS: Appearance Urine Clear; Glucose Urine UA Negative (Negative); PH 7.0 (5.0-9.0); Specific Gravity - Urine 1.025 (1.005-1.025)
--- OUTSIDE RECORDS SUMMARY | 2025-04-17 19:56 | XMS_ITS | Clinical Summary ---
Author Organization [facility] Address [address] [place] [address] Phone Care Team Providers Care Bill Clerk Name Role Phone Physician, No Pcp Primary Care Provider Unavaila ble Allergies Active Allergy Reactions Criticality Noted Date Comments Penicillins Unknown 04/10/2025 Medications No known medications Encounters Date Type Department Care Team Description 04/10/2025 5:57 PM EDT - 04/10/2025 9:41 PM EDT Emergency [facility] Emergency [address] [place] [id number] Dallas Gottlieb MD Goebel, Mathew, MD Flank pain (Primary Dx) Discharge Disposition: Home or Self Care from Last 3 Months Surgical History Surgery Date Site/Laterality Comments OTHER SURGICAL HISTORY 1988 Left PROCEDURE: MD GRAFT COMPOSITE W/PRIMARY CLOSURE DONOR AREA; COMMENT: [...] reflex microscopic (04/10/2025 8:55 PM EDT) Specific [place] Urine 1.013 1.003 - 1.030 LAB URINALYSIS - AUTOMATED METHOD 04/10/2025 9:24 PM EDT [facility] pH, Urine 7.0 5.0 - 8.0 pH LAB URINALYSIS - AUTOMATED METHOD 04/10/2025 9:24 PM EDT [facility] Leukocytes, Urine Negative Negative LAB URINALYSIS - AUTOMATED METHOD 04/10/2025 9:24 PM EDT [facility] Nitrite, Urine Negative Negative LAB URINALYSIS - AUTOMATED METHOD 04/10/2025 9:24 PM EDT [facility] Protein, Urine Negative <=Trace mg/dL LAB URINALYSIS - AUTOMATED METHOD 04/10/2025 9:24 PM EDT [facility] Glucose, Urine 100(A) Negative mg/dL LAB URINALYSIS - AUTOMATED METHOD 04/10/2025 9:24 PM EDT [facility] Ketones, Urine Negative Negative mg/dL LAB URINALYSIS - AUTOMATED METHOD 04/10/2025 9:24 PM EDT [facility] Urobilinogen, Urine 0.2 0.2 - 1.0 mg/dL LAB URINALYSIS - AUTOMATED METHOD 04/10/2025 9:24 PM EDT [facility] Bilirubin, Urine Negative Negative LAB URINALYSIS - AUTOMATED METHOD 04/10/2025 9:24 PM EDT [facility] Blood, Urine Negative Negative LAB URINALYSIS - AUTOMATED METHOD 04/10/2025 9:24 PM EDT [facility] Urine Urine specimen obtained by clean catch procedure / Unknown Non-blood Collection / Unknown 04/10/2025 8:55 PM EDT 04/10/2025 9:19 PM EDT us Dallas Gottlieb MD LAB URINE ORDERABLES Final Resul t [facility] [address] [place] [address], * CT Abdomen Pelvis wo Contrast (04/10/2025 [...] LAB HEMETOLOGY METHOD 04/10/2025 3:35 PM EDT [facility] RBC 4.60 4.50 - 5.50 M/mcL LAB HEMETOLOGY METHOD 04/10/2025 3:35 PM EDT [facility] Hemoglobin 15.9 13.5 - 17.5 g/dL LAB HEMETOLOGY METHOD 04/10/2025 3:35 PM EDT [facility] Hematocrit 44.2 42.0 - 54.0 % LAB HEMETOLOGY METHOD 04/10/2025 3:35 PM EDT [facility] MCV 97.1 79.0 - 98.0 FL LAB HEMETOLOGY METHOD 04/10/2025 3:35 PM EDT [facility] MCH 34.9(H) 27.0 - 32.0 pcg LAB HEMETOLOGY METHOD 04/10/2025 3:35 PM EDT [facility] MCHC 36.0 32.0 - 37.0 g/dL LAB HEMETOLOGY METHOD 04/10/2025 3:35 PM EDT [facility] RDW 13.7 11.0 - 15.0 % LAB HEMETOLOGY METHOD 04/10/2025 3:35 PM EDT [facility] Platelets 259 130 - 400 K/mcL LAB HEMETOLOGY METHOD 04/10/2025 3:35 PM EDT [facility] MPV 8.3 7.0 - 11.0 FL LAB HEMETOLOGY METHOD 04/10/2025 3:35 PM EDT [facility] NRBC 0.0 <1.0 % LAB HEMETOLOGY METHOD 04/10/2025 3:35 PM EDT [facility] NRBC Absolute 0.00 <0.10 K/mcL LAB HEMETOLOGY METHOD 04/10/2025 3:35 PM EDT [facility] Neutrophils Relative 48.5 % LAB HEMETOLOGY METHOD 04/10/2025 3:35 PM EDT [facility] Lymphocytes Relative 37.3 % LAB HEMETOLOGY METHOD 04/10/2025 3:35 PM EDT [facility] Monocytes Relative 8.0 % LAB HEMETOLOGY METHOD 04/10/2025 3:35 PM EDT [facility] Eosinophils Relative 4.7 % LAB HEMETOLOGY METHOD 04/10/2025 3:35 PM EDT [facility] Basophils Relative 1.3 % LAB HEMETOLOGY METHOD 04/10/2025 3:35 PM EDT [facility] Immature Granulocytes Relative 0.2 % LAB HEMETOLOGY METHOD 04/10/2025 3:35 PM EDT [facility] Neutrophils Absolute 2.25 1.50 - 7.00 K/mcL LAB HEMETOLOGY METHOD 04/10/2025 3:35 PM EDT [facility] Lymphocytes Absolute 1.73 1.00 - 5.00 K/mcL LAB HEMETOLOGY METHOD 04/10/2025 3:35 PM EDT [facility] Monocytes Absolute 0.37 0.20 - 1.00 K/mcL LAB HEMETOLOGY METHOD 04/10/2025 3:35 PM EDT [facility] Eosinophils Absolute 0.22 0.00 - 0.50 K/mcL LAB HEMETOLOGY METHOD 04/10/2025 3:35 PM EDT [facility] Basophils Absolute 0.06 0.00 - 0.20 K/mcL LAB HEMETOLOGY METHOD 04/10/2025 3:35 PM EDT [facility] Immature Granulocytes Absolute 0.01 0.00 - 0.03 K/mcL LAB HEMETOLOGY METHOD 04/10/2025 3:35 PM EDT [facility] Blood Venous blood specimen / Unknown Venipuncture / Unknown 04/10/2025 3:01 PM EDT 04/10/2025 3:26 PM EDT us Dallas Gottlieb MD LAB BLOOD ORDERABLES Final Resul t [facility] [address] [place] [address], * Lipase (04/10/2025 3:01 PM EDT) Lipase 22 13 - 75 unit/L LAB CHEMISTRY METHOD 04/10/2025 4:06 PM EDT [facility] Blood Venous blood specimen / Unknown Venipuncture / Unknown 04/10/2025 3:01 PM EDT 04/10/2025 3:26 PM EDT us Dallas Gottlieb MD LAB BLOOD ORDERABLES Final Resul t [facility] [address] [place] [address], [place] [phone] * (ABNORMAL) Comprehensive metabolic panel (04/10/2025 3:01 PM EDT) Sodium 137 133 - 145 mmol/L LAB CHEMISTRY METHOD 04/10/2025 4:06 PM [facility] Potassium 4.0 3.5 - 5.5 mmol/L LAB CHEMISTRY METHOD 04/10/2025 4:06 PM [facility] Chloride 103 96 - 110 mmol/L LAB CHEMISTRY METHOD 04/10/2025 4:06 PM [facility] CO2 27 21 - 32 mmol/L LAB CHEMISTRY METHOD 04/10/2025 4:06 PM [facility] Anion Gap 7 3 - 11 LAB CHEMISTRY METHOD 04/10/2025 4:06 PM [facility] Glucose 108(H) 70 - 100 mg/dL LAB CHEMISTRY METHOD 04/10/2025 4:06 PM [facility] BUN 10 5 - 25 mg/dL LAB CHEMISTRY METHOD 04/10/2025 4:06 PM [facility] Creatinine 0.73 0.70 - 1.30 mg/dL LAB CHEMISTRY METHOD 04/10/2025 4:06 PM [facility] eGFR 105 >=60 mL/min/1. 73m2 LAB CHEMISTRY METHOD 04/10/2025 4:06 PM [facility] Comment:Calculation based on the Chronic Kidney Disease Epidemiology Collaboration (CKD-EPI) equation refit without adjustment for race. BUN/Creatinine Ratio 13.7 LAB CHEMISTRY METHOD 04/10/2025 4:06 PM [facility] Calcium 8.6 8.5 - 10.5 mg/dL LAB CHEMISTRY METHOD 04/10/2025 4:06 PM [facility] AST (SGOT) 98(H) 10 - 42 unit/L LAB CHEMISTRY METHOD 04/10/2025 4:06 PM [facility] ALT (SGPT) 76(H) 10 - 60 unit/L LAB CHEMISTRY METHOD 04/10/2025 4:06 PM [facility] Alkaline Phosphatase 142(H) 42 - 121 unit/L LAB CHEMISTRY METHOD 04/10/2025 4:06 PM [facility] Total Protein 7.1 6.0 - 8.0 g/dL LAB CHEMISTRY METHOD 04/10/2025 4:06 PM [facility] Albumin 3.8 3.2 - 5.0 g/dL LAB CHEMISTRY METHOD 04/10/2025 4:06 PM [facility] Total Bilirubin 0.3 0.0 - 1.4 mg/dL LAB CHEMISTRY METHOD 04/10/2025 4:06 PM [facility] Blood Venous blood specimen / Unknown Venipuncture / Unknown 04/10/2025 3:01 PM EDT 04/10/2025 3:26 PM EDT us Dallas Gottlieb MD LAB BLOOD ORDERABLES Final Resul t [facility] [address] [place] [address], from Last 3 Months Insurance [facility] Care Teams Bill Clerk Relationship Specialty Start Date End Date Physician, No Pcp PCP - General 04/10/25
[2025-04-17 20:19] VITALS: BP 182/114; PULSE 80; RESP 16; TEMP 36.6; O2SAT 98
[2025-04-17 20:41] VITALS: BP 182/114; PULSE 80; RESP 16; TEMP 36.6; O2SAT 98
== END 2025-04-17 20:48 | disposition home or self-care (01) ==
PROVIDERS: Physician Assistant Medical; Emergency Provider Emergency Medicine Emergency Medical Services
DX: R14.3 Flatulence (principal); R10.32 Left lower quadrant pain; F17.210 Nicotine dependence, cigarettes, uncomplicated; Z79.899 Other long term (current) drug therapy
CPT/HCPCS: 36415; 74018; 80048; 80076; 81003; 83735; 85025; 99283; 99284

== ENCOUNTER → 2025-04-17 19:40 | Outpatient (BNV) | payer OTHER, SELFPAY | PROVIDERS: Emergency Provider Emergency Medicine Emergency Medical Services; Visit Provider Radiology Diagnostic Radiology | DX: R10.32 Left lower quadrant pain (principal) | CPT/HCPCS: 74018 ==